=== PATIENT | female | born 1985 | race Caucasian/White ===

== ENCOUNTER → 2017-02-17 | Outpatient (CLI) | payer BC ==
[~2017-02-17] MED LIST: ANAPROX DS550 MG PO; BACTRIM DS 8001 TA1 PO; CIPRO250 MG PO; CIPROFLOXACIN500 MG PO; Fioricet 325 MG1 TAB PO; IMITREX100 MG PO; LEVOTHROID0.075 MG PO; TOVIAZ4 MG PO; VICODIN 5/500 505 MG PO; VITAMIN D5000 IU PO; ZOFRAN ODT4 MG SL; ZOFRAN4 MG PO
== END ==
LOC: LAB 15:24
DX: Z34.80 Encounter for supervision of other normal pregnancy, unspecified trimester (principal)

== ENCOUNTER → 2017-02-24 | Outpatient (CLI) | payer BC | END | disposition home or self-care (01) | LOC: US 16:30 | DX: O36.80X0 Pregnancy with inconclusive fetal viability, not applicable or unspecified (principal); Z3A.01 Less than 8 weeks gestation of pregnancy ==